=== PATIENT | female | born 1980 | race Caucasian/White ===

== ENCOUNTER → 2016-09-28 | Outpatient (REF) | payer OTHER | LOC: M SFHCLERA 09:09 | PROVIDERS: ATTEND Family Medicine | DX: Z13.220 Encounter for screening for lipoid disorders (principal) ==

== ENCOUNTER → 2016-09-29 | Outpatient (REF) | payer OTHER | LOC: M SFHCLERA 16:32 | PROVIDERS: ATTEND Family Medicine | DX: D23.72 Other benign neoplasm of skin of left lower limb, including hip (principal) ==

== ENCOUNTER → 2017-01-31 | Outpatient (CLI) | payer OTHER ==
--- NOTE | 2017-01-31 10:19 | REP ---
DIGITAL DIAGNOSTIC UNILATERAL RIGHT BREAST MAMMOGRAPHY WITH CAD AND FOCUSED RIGHT BREAST SONOGRAPHY: HISTORY: Right breast lump. Less than 1 cm firm mobile nodule right inferior medial quadrant just below the nipple. MAMMOGRAPHIC FINDINGS: A skin marker is affixed to the skin at the site of the palpable lump. CC and MLO views of the right breast demonstrate heterogeneously dense breast parenchyma. No mass lesion, spiculation, architectural distortion or microcalcification is observed. No worrisome skin change is seen. SONOGRAPHIC FINDINGS: Focused right breast sonography is performed from 4 -o'clock position to 6 -o'clock position centered over the 5-o'clock position palpable abnormality. Heterogeneous fibroglandular background echotexture is seen by ultrasound. No cyst or mass is seen. IMPRESSION: BIRADS category 11 negative right breast imaging. This negative report should not dissuade one from biopsy of a palpable lump depending on its clinical characteristics. Clinical follow-up is advised. BI-RADS/ACR category 1 mammogram. Negative. Routine annual screening mammography (for women over age 40). This mammogram was interpreted with the aid of an FDA-approved computer-aided detection system. The patient states she/he had a clinical breast exam in January 2017 The patient letter being requested is M2. Signed by Braxton Patterson MD 01/31/2017 10:49 A
== END ==
LOC: M RAD 08:49
PROVIDERS: ATTEND Family Medicine
DX: N63 Unspecified lump in breast (principal)